=== PATIENT | female | born 1990 ===

== ENCOUNTER 2022-09-06 12:32 | Emergency (ER) | payer BC ==
[2022-09-06 12:50] VITALS: BP 118/67; PULSE 77
[2022-09-06] MEDS ORDERED: Bacitracin Oint 1 GM U/D Packet TOP ONE (12:54)
[2022-09-06] MEDS ORDERED: Lidocaine 1% 5 ML VIAL INJECT ONE (12:54)
[2022-09-06] MEDS ORDERED: Diphtheria,Pertussis(Acell),Tetanus Vaccine 0.5 ML Syringe IM ONE (13:15)
== END 2022-09-06 14:37 | disposition home or self-care (01) ==
LOC: LL.ED 12:32
DX: S61.412A Laceration without foreign body of left hand, initial encounter (principal); Z77.22 Contact with and (suspected) exposure to environmental tobacco smoke (acute) (chronic); Z23 Encounter for immunization; W26.8XXA Contact with other sharp object(s), not elsewhere classified, initial encounter
CPT/HCPCS: 12001; 90471; 90715; 99282-25; 99283